=== PATIENT | female | born 1975 | race African-American/Black ===

== ENCOUNTER 2022-04-25 01:53 | Inpatient (IN) | payer BC, OTHER ==
[2022-04-25 03:43] LABS: ALT (SGPT) 99 U/L (8-55); AST (SGOT) 60 U/L (5-34); Albumin 4.3 g/dL (3.5-5.0); Alkaline Phosphatase 135 U/L (40-110); Anion Gap 25 mmol/L (10-20); BUN (Urea Nitrogen) 71 mg/dL (7.0-18.7); Bilirubin, Total 1.4 mg/dL (0.2-1.2); Calc. Creatinine Clearance 0 mL/min (70-130); Calcium 10.7 mg/dL (7.8-10.44); Chloride 103 mmol/L (98-107); Estimated GFR 25; Globulin 4.9 g/dL (2.4-3.5); Glucose 335 mg/dL (70-105); Protein, Total 9.2 g/dL (6.0-8.3); Sodium 133 mmol/L (136-145)
[2022-04-25 03:58] LABS: Carbon Dioxide 9 mmol/L (22-29)
[2022-04-25 04:16] LABS: CKMB 5.8 ng/mL (0-6.6)
[2022-04-25 04:21] LABS: Band 5 % (5-11); Hemoglobin 12.1 g/dL (12.0-16.0); Lymphocytes 22 % (21-51); MDiff Complete? YES; Mean Corpuscular HGB CONC 33.9 g/dL (32.0-36.0); Mean Corpuscular Volume 88.5 fl (78.0-98.0); Mean Platelet Volume 9.3 fL (7.4-10.4); Monocytes 8 % (0-10); Neutrophil 65 % (42-75); Nucleated RBC 16 % (0); Platelet Count 233 10x3/uL (130-400); Platelet Morphology Comment Appears Adequate; RBC Morphology Normal; Red Blood Cell (RBC) Count 4.02 mill/uL (4.20-5.40); White Blood Cell (WBC) Count 11.7 10x3/uL (4.8-10.8)
[2022-04-25] MEDS ORDERED: Aspirin 81 mg Enteric Coated Tablet ONE (04:24)
[2022-04-25] MEDS ORDERED: INSULIN REGULAR IN 0.9 % NACL 100 UNIT/100 ML BAG ONE (04:24)
[2022-04-25] MEDS ORDERED: Aspirin Chewable 81 MG TAB ONE (04:25)
[2022-04-25 05:01] LABS: Calcium, Ionized (venous) 1.05 mmol/L (1.16-1.32); Chloride (VBG) 109 mmol/L (98-106); Hemoglobin (Hb) 10.6 g/dL (11.7-16.0); Potassium (VBG) 4.17 mmol/L (3.70-5.30); Sodium 138.9 mmol/L (133-146); pH (venous) 7.33 (7.32-7.43)
[2022-04-25 05:05] LABS: Actual Bicarbonate (HCO3v) 10 mEq/L (22-28)
[2022-04-25] MEDS ORDERED: Nitroglycerin 0.4 MG TAB (25 Tab Bottle) SL PRN (05:33)
[2022-04-25] MEDS ORDERED: NS 0.9% w/ 20 MEQ KCL 1,000 ML IV PRN ×2 (05:35)
[2022-04-25] MEDS ORDERED: Ondansetron ODT 4 MG TAB PO PRN (05:35)
[2022-04-25] MEDS ORDERED: Lorazepam 2 MG/ML VIAL IM PRN (05:35)
[2022-04-25] MEDS ORDERED: Sodium Chloride 0.9% 1,000 ML IV PRN ×4 (05:35)
[2022-04-25] MEDS ORDERED: Electrolyte Replacement Protocol 1 EACH IVPB PRN (05:35)
[2022-04-25] MEDS ORDERED: Dextrose 5 %-0.45 % NaCl 1,000 ML IV PRN (05:35)
[2022-04-25] MEDS ORDERED: Dextrose 50% Abboject 50 ML SYRINGE SLOW IVP PRN (05:35)
[2022-04-25] MEDS ORDERED: Ipratropium/Albuterol 3 ML NEB NEB PRN (05:37)
[2022-04-25] MEDS ORDERED: HUMULIN R 100 UNITS in Sodium Chloride 0.9% 100 ML IVPB SCH (05:45)
[2022-04-25] MEDS ORDERED: Electrolyte Replacement Protocol 1 EACH FS SCH (05:45)
[2022-04-25] MEDS ORDERED: Heparin 10,000 UNITS/ 10 ML VIAL SLOW IVP SCH (05:45)
[2022-04-25] MEDS ORDERED: Heparin 25,000 units/D5W 500 ML IVPB SCH (05:45)
[2022-04-25 05:48] LABS: PTT 23.4 sec (22.9-36.1); Prothrombin Time 13.9 sec (12.0-14.7)
[2022-04-25 06:33] LABS: SARS-CoV-2 NAA Rapid Test Not Detected (NotDetected)
[2022-04-25] MEDS ORDERED: Heparin 10,000 UNITS/ 10 ML VIAL ONE (06:46)
[2022-04-25] MEDS ORDERED: Heparin 25,000 units/D5W 500 ML ONE (06:46)
[2022-04-25 07:02] LABS: Hemoglobin 8.3 g/dL (12.0-16.0); Platelet Count 177 10x3/uL (130-400)
[2022-04-25 07:05] LABS: Anion Gap 17 mmol/L (10-20); Chloride 113 mmol/L (98-107)
[2022-04-25] MEDS ORDERED: D5 1/2 NS w/20 mEq KCL 1,000 ML ONE (07:08)
[2022-04-25] MEDS ORDERED: Dextrose 50% Abboject 50 ML SYRINGE ONE (07:09)
[2022-04-25 07:12] LABS: Critical Call Chem Troponin I RESULT DECREASING; Troponin I 1.506 ng/mL (< 0.028)
[2022-04-25 08:02] LABS: BUN (Urea Nitrogen) 61 mg/dL (7.0-18.7); Calc. Creatinine Clearance 0 mL/min (70-130); Calcium 7.8 mg/dL (7.8-10.44); Carbon Dioxide 10 mmol/L (22-29); Estimated GFR 36; Glucose 164 mg/dL (70-105); Sodium 138 mmol/L (136-145)
[2022-04-25] MEDS ORDERED: Potassium Chloride 20 MEQ TAB PO SCH (08:15)
[2022-04-25] MEDS ORDERED: Aspirin 325 mg Enteric Coated Tablet PO SCH (08:30)
[2022-04-25] MEDS ORDERED: Magnesium 2 GM/50 ML(in water) 2 GM in Premix Bag 1 BAG IVPB SCH (09:00)
[2022-04-25 09:10] LABS: SARS-CoV-2 NAA Rapid Test Not Detected (NotDetected)
[2022-04-25 10:28] LABS: Anion Gap 17 mmol/L (10-20); BUN (Urea Nitrogen) 64 mg/dL (7.0-18.7); Calc. Creatinine Clearance 0 mL/min (70-130); Calcium 8.2 mg/dL (7.8-10.44); Carbon Dioxide 10 mmol/L (22-29); Chloride 110 mmol/L (98-107); Estimated GFR 32; Glucose 212 mg/dL (70-105); Potassium 2.9 mmol/L (3.5-5.1); Sodium 134 mmol/L (136-145)
[2022-04-25 10:40] LABS: Critical Call Chem Troponin I RESULT DECREASING; Troponin I 1.475 ng/mL (< 0.028)
[2022-04-25 11:04] LABS: Syphilis Antibody Nonreactive (Nonreactive); Syphilis Antibody Index 0.02 S/CO (<1.00 Non-Reactive)
[2022-04-25] MEDS ORDERED: Folic Acid 1 MG TAB ONE (12:17)
[2022-04-25] MEDS ORDERED: Aspirin 325 MG TAB ONE (12:17)
[2022-04-25 12:23] LABS: Bilirubin 1+ (Negative); Blood, Urine Negative (Negative); Clarity Turbid (Clear); Glucose, Urine (Dipstick) Normal (Negative); Ketone, Urine Trace mg/dL (Negative); Leukocyte Negative Leu/uL (Negative); Nitrite Negative (Negative); Protein, Urine (Dipstick) 20 mg/dL (Neg-Trace); Specific Gravity, Urine 1.021 (1.002-1.036)
[2022-04-25 12:34] LABS: Amphetamine Not Detected (NotDetected); Barbiturates Screen Not Detected (NotDetected); Benzodiazepine Screen Not Detected (NotDetected); Cocaine Metabolite Screen Not Detected (NotDetected); Methadone Not Detected (NotDetected); Methamphetamine Not Detected (NotDetected); Opiate Screen Not Detected (NotDetected); Oxycodone Screen Not Detected (NotDetected); Phencyclidine (PCP) Not Detected (NotDetected); THC/Cannabinoid Screen Not Detected (NotDetected); Tricyclic Screen Not Detected (NotDetected)
[2022-04-25] MEDS: Multivit, Therapeutic 1 TAB PO SCH (12:37)
[2022-04-25] MEDS: Aspirin 325 mg Enteric Coated Tablet PO SCH (12:37)
[2022-04-25] MEDS: Folic Acid 1 MG TAB PO SCH (12:37)
[2022-04-25] MEDS: Thiamine HCl 200 MG/2 ML VIAL SLOW IVP SCH (12:37)
[2022-04-25] MEDS ORDERED: Magnesium 2 GM/50 ML BAG (IN WATER) ONE (13:02)
[2022-04-25 14:39] LABS: Anion Gap 18 mmol/L (10-20); BUN (Urea Nitrogen) 63 mg/dL (7.0-18.7); Calc. Creatinine Clearance 0 mL/min (70-130); Calcium 7.9 mg/dL (7.8-10.44); Carbon Dioxide 12 mmol/L (22-29); Chloride 110 mmol/L (98-107); Estimated GFR 33; Glucose 212 mg/dL (70-105); Potassium 3.2 mmol/L (3.5-5.1); Sodium 137 mmol/L (136-145)
[2022-04-25] MEDS: Digoxin 0.5 MG/2 ML AMP SLOW IVP SCH ×3 (17:48→21:21)
[2022-04-25] MEDS: Lorazepam 1 MG TAB PO PRN ×2 (19:34→21:24)
[2022-04-25] MEDS: D5 1/2 NS w/20 mEq KCL 1,000 ML IV PRN ×2 (19:34→23:51)
[2022-04-26] MEDS: D5 1/2 NS w/20 mEq KCL 1,000 ML IV PRN (04:10)
[2022-04-26] MEDS ORDERED: Lorazepam 1 MG TAB PO PRN (05:35)
[2022-04-26 07:24] LABS: Hemoglobin A1c 5.6 % (4.0-6.0)
[2022-04-26 07:42] LABS: ALT (SGPT) 57 U/L (8-55); AST (SGOT) 47 U/L (5-34); Albumin 2.6 g/dL (3.5-5.0); Alkaline Phosphatase 98 U/L (40-110); Anion Gap 12 mmol/L (10-20); BUN (Urea Nitrogen) 43 mg/dL (7.0-18.7); Bilirubin, Total 1.1 mg/dL (0.2-1.2); Calc. Creatinine Clearance 37 mL/min (70-130); Calcium 7.3 mg/dL (7.8-10.44); Carbon Dioxide 8 mmol/L (22-29); Cardiac Risk 3.7 (Less than 4.5); Chloride 114 mmol/L (98-107); Cholesterol 93 mg/dl (< 200 Desired); Estimated GFR 54; Globulin 2.6 g/dL (2.4-3.5); Glucose 124 mg/dL (70-105); HDL Cholesterol 25 mg/dL (>60 Neg Risk); LDL Cholesterol, Calculated 56 mg/dL; Lipase 4 U/L (8-78); Potassium 4.7 mmol/L (3.5-5.1); Protein, Total 5.2 g/dL (6.0-8.3); Sodium 129 mmol/L (136-145); Triglycerides 58 mg/dL (Less than 150)
[2022-04-26 07:43] LABS: Magnesium 2.5 mg/dL (1.6-2.6)
[2022-04-26] MEDS ORDERED: Sodium Bicarbonate 150 MEQ in Dextrose 5% in Water 1,000 ML IV SCH (08:45)
[2022-04-26] MEDS: Folic Acid 1 MG TAB PO SCH ×2 (09:22→09:30)
[2022-04-26] MEDS: Aspirin 325 mg Enteric Coated Tablet PO SCH ×2 (09:22→09:30)
[2022-04-26] MEDS: Digoxin 0.125 MG TAB PO SCH ×2 (09:22→09:30)
[2022-04-26] MEDS: Multivit, Therapeutic 1 TAB PO SCH ×2 (09:22→09:30)
[2022-04-26] MEDS: Insulin Glargine 30 UNITS/0.3 ML VIAL SC SCH (09:22)
[2022-04-26] MEDS: DOBUTamine 500 mg/250 ml 250 ML IVPB SCH (09:23)
[2022-04-26] MEDS: Thiamine HCl 200 MG/2 ML VIAL SLOW IVP SCH (09:38)
[2022-04-26 12:53] LABS: Lactic Acid 2.7 mmol/L (0.5-2.2)
[2022-04-26 19:03] LABS: Anion Gap 12 mmol/L (10-20); BUN (Urea Nitrogen) 39 mg/dL (7.0-18.7); Calc. Creatinine Clearance 38 mL/min (70-130); Calcium 7.4 mg/dL (7.8-10.44); Carbon Dioxide 16 mmol/L (22-29); Chloride 108 mmol/L (98-107); Estimated GFR 56; Glucose 213 mg/dL (70-105); Potassium 4.5 mmol/L (3.5-5.1); Sodium 131 mmol/L (136-145)
[2022-04-27 04:46] LABS: Band 14 % (5-11); Eosinophils 1 % (0-10); Hemoglobin 7.8 g/dL (12.0-16.0); Hypochromia SLIGHT = 6-15 cells (100X) (0-5/hpf); Lymphocytes 13 % (21-51); MDiff Complete? YES; Mean Corpuscular HGB CONC 32.2 g/dL (32.0-36.0); Mean Corpuscular Hemoglobin 29.4 pg (27.0-31.0); Mean Corpuscular Volume 91.3 fl (78.0-98.0); Mean Platelet Volume 9.6 fL (7.4-10.4); Monocytes 5 % (0-10); Neutrophil 67 % (42-75); Nucleated RBC 27 % (0); Platelet Count 145 10x3/uL (130-400); Platelet Morphology Comment Appears Adequate; RBC Distribution Width 14.7 % (11.5-14.5); Red Blood Cell (RBC) Count 2.66 mill/uL (4.20-5.40); White Blood Cell (WBC) Count 10.9 10x3/uL (4.8-10.8)
[2022-04-27 04:53] LABS: ALT (SGPT) 66 U/L (8-55); AST (SGOT) 54 U/L (5-34); Albumin 2.6 g/dL (3.5-5.0); Alkaline Phosphatase 129 U/L (40-110); Anion Gap 14 mmol/L (10-20); BUN (Urea Nitrogen) 36 mg/dL (7.0-18.7); Bilirubin, Total 1.6 mg/dL (0.2-1.2); Calc. Creatinine Clearance 40 mL/min (70-130); Calcium 7.9 mg/dL (7.8-10.44); Carbon Dioxide 15 mmol/L (22-29); Chloride 107 mmol/L (98-107); Estimated GFR 60; Globulin 2.7 g/dL (2.4-3.5); Glucose 158 mg/dL (70-105); Potassium 4.3 mmol/L (3.5-5.1); Protein, Total 5.3 g/dL (6.0-8.3); Sodium 132 mmol/L (136-145)
[2022-04-27 04:54] LABS: Iron 17 ug/dL (50-170); Iron Binding Capacity, Total 188 mcg/dL (265-497)
[2022-04-27 05:03] LABS: Phosphorus 1.9 mg/dL (2.3-4.7)
[2022-04-27 05:12] LABS: Ferritin 219.27 ng/mL (10-291)
[2022-04-27 05:17] LABS: Vitamin D, 25 Hydroxy Less than 3.4 ng/ml (> 30.0)
[2022-04-27] MEDS ORDERED: Lorazepam 1 MG TAB PO PRN (05:35)
[2022-04-27] MEDS: Digoxin 0.125 MG TAB PO SCH (08:55)
[2022-04-27] MEDS: PHOS-NAK 1 PKT PACK PO SCH ×2 (08:56→13:25)
[2022-04-27] MEDS: Aspirin 81 mg Enteric Coated Tablet PO SCH (08:57)
[2022-04-27] MEDS: Folic Acid 1 MG TAB PO SCH (08:57)
[2022-04-27] MEDS: Multivit, Therapeutic 1 TAB PO SCH (08:57)
[2022-04-27] MEDS: Insulin Glargine 30 UNITS/0.3 ML VIAL SC SCH (08:58)
[2022-04-27] MEDS ORDERED: Lisinopril 2.5 MG TAB PO SCH (09:00)
[2022-04-27] MEDS: Pantoprazole 40 MG VIAL IVP SCH (09:07)
[2022-04-27] MEDS: Thiamine HCl 200 MG/2 ML VIAL SLOW IVP SCH (09:07)
[2022-04-27] MEDS ORDERED: Empagliflozin 10 MG TAB PO SCH (12:00)
[2022-04-27] MEDS: Ergocalciferol 1.25 MG(50,000 UNITS) CAP PO SCH (13:24)
[2022-04-27] MEDS: Iron, Sodium Ferric Gluconate 250 MG in Sodium Chloride 0.9% 250 ML 250 ML IVPB SCH (15:01)
[2022-04-27] MEDS ORDERED: Sodium Bicarbonate 150 MEQ in Dextrose 5% in Water 1,000 ML IV SCH (15:30)
[2022-04-28 04:35] LABS: Phosphorus 2.2 mg/dL (2.3-4.7)
[2022-04-28 04:38] LABS: ALT (SGPT) 69 U/L (8-55); AST (SGOT) 60 U/L (5-34); Albumin 2.5 g/dL (3.5-5.0); Alkaline Phosphatase 146 U/L (40-110); Anion Gap 11 mmol/L (10-20); BUN (Urea Nitrogen) 27 mg/dL (7.0-18.7); Bilirubin, Total 1.6 mg/dL (0.2-1.2); Calc. Creatinine Clearance 40 mL/min (70-130); Calcium 7.6 mg/dL (7.8-10.44); Carbon Dioxide 25 mmol/L (22-29); Chloride 104 mmol/L (98-107); Estimated GFR 62; Globulin 2.5 g/dL (2.4-3.5); Glucose 84 mg/dL (70-105); Potassium 3.2 mmol/L (3.5-5.1); Sodium 137 mmol/L (136-145)
[2022-04-28 05:19] LABS: Anisocytosis MODERATE=16-30 cells (100X) (0-5/hpf); Band 4 % (5-11); Burr Cells SLIGHT = 2-5 cells (100X) (0-1/hpf); Hemoglobin 6.8 g/dL (12.0-16.0); Lymphocytes 20 % (21-51); MDiff Complete? YES; Mean Corpuscular HGB CONC 32.1 g/dL (32.0-36.0); Mean Corpuscular Hemoglobin 29.4 pg (27.0-31.0); Mean Corpuscular Volume 91.6 fl (78.0-98.0); Mean Platelet Volume 9.6 fL (7.4-10.4); Monocytes 7 % (0-10); Neutrophil 69 % (42-75); Nucleated RBC 31 % (0); Platelet Count 134 10x3/uL (130-400); Platelet Morphology Comment Appears Adequate; Polychromasia SLIGHT = 2-3 cells (100X) (0-2/hpf); Red Blood Cell (RBC) Count 2.29 mill/uL (4.20-5.40); Tear Drops SLIGHT = 2-5 cells (100X) (0-1/hpf); White Blood Cell (WBC) Count 7.8 10x3/uL (4.8-10.8)
[2022-04-28] MEDS ORDERED: Lorazepam 0.5 MG TAB PO PRN (05:35)
[2022-04-28] MEDS: Potassium Chloride 20 MEQ in Premix Bag 1 BAG IVPB SCH ×2 (05:59→11:34)
[2022-04-28] MEDS ORDERED: Lisinopril 2.5 MG TAB PO SCH (08:07)
[2022-04-28] MEDS: Multivit, Therapeutic 1 TAB PO SCH (08:22)
[2022-04-28] MEDS: Folic Acid 1 MG TAB PO SCH (08:22)
[2022-04-28] MEDS: Aspirin 81 mg Enteric Coated Tablet PO SCH (08:22)
[2022-04-28] MEDS: Digoxin 0.125 MG TAB PO SCH (08:22)
[2022-04-28] MEDS: Insulin Glargine 30 UNITS/0.3 ML VIAL SC SCH (08:23)
[2022-04-28] MEDS: Pantoprazole 40 MG VIAL IVP SCH (08:23)
[2022-04-28] MEDS ORDERED: Lisinopril 5 MG TAB PO SCH (09:00)
[2022-04-28] MEDS ORDERED: Potassium Phosphate 30 MMOL in Sodium Chloride 0.9% 250 ML 250 ML IVPB SCH (10:00)
[2022-04-28] MEDS: Dextrose 5%-Lactated Ringers 1,000 ML IV SCH ×2 (11:34→23:48)
[2022-04-28] MEDS: Thiamine 100 MG TAB PO SCH (11:34)
[2022-04-28 16:24] LABS: Hemoglobin 8.5 g/dL (12.0-16.0)
[2022-04-28] MEDS: Iron, Sodium Ferric Gluconate 250 MG in Sodium Chloride 0.9% 250 ML 250 ML IVPB SCH (18:08)
[2022-04-28] MEDS: PHOS-NAK 1 PKT PACK PO SCH (19:55)
[2022-04-28] MEDS: Temazepam 15 MG CAP PO PRN (23:56)
[2022-04-29 04:13] LABS: Hemoglobin 9.9 g/dL (12.0-16.0); Mean Corpuscular HGB CONC 34.6 g/dL (32.0-36.0); Mean Corpuscular Hemoglobin 32.3 pg (27.0-31.0); Mean Corpuscular Volume 93.4 fl (78.0-98.0); Mean Platelet Volume 9.8 fL (7.4-10.4); Platelet Count 123 10x3/uL (130-400); RBC Distribution Width 15.6 % (11.5-14.5); Red Blood Cell (RBC) Count 3.07 mill/uL (4.20-5.40)
[2022-04-29 04:21] LABS: ALT (SGPT) 59 U/L (8-55); AST (SGOT) 39 U/L (5-34); Albumin 2.6 g/dL (3.5-5.0); Alkaline Phosphatase 149 U/L (40-110); Anion Gap 14 mmol/L (10-20); BUN (Urea Nitrogen) 19 mg/dL (7.0-18.7); Bilirubin, Total 1.9 mg/dL (0.2-1.2); Calc. Creatinine Clearance 43 mL/min (70-130); Calcium 7.7 mg/dL (7.8-10.44); Carbon Dioxide 19 mmol/L (22-29); Chloride 107 mmol/L (98-107); Estimated GFR 66; Globulin 2.7 g/dL (2.4-3.5); Glucose 93 mg/dL (70-105); Potassium 3.3 mmol/L (3.5-5.1); Protein, Total 5.3 g/dL (6.0-8.3); Sodium 137 mmol/L (136-145)
[2022-04-29 04:40] LABS: Band 1 % (5-11); Lymphocytes 16 % (21-51); MDiff Complete? YES; Monocytes 2 % (0-10); Neutrophil 81 % (42-75); Nucleated RBC 4 % (0); Polychromasia MODERATE = 3-4 cells (100X) (0-2/hpf); Target Cells SLIGHT = 2-5 cells (100X) (0-1/hpf); White Blood Cell (WBC) Count 10.1 10x3/uL (4.8-10.8)
[2022-04-29] MEDS ORDERED: Nicotine 14 MG PATCH TOP SCH (04:45)
[2022-04-29] MEDS: DOBUTamine 500 mg/250 ml 250 ML IVPB SCH (05:06)
[2022-04-29] MEDS ORDERED: DOBUTamine 500 mg/250 ml 250 ML IVPB SCH (07:21)
[2022-04-29] MEDS: Pantoprazole 40 MG VIAL IVP SCH (09:28)
[2022-04-29] MEDS: Multivit, Therapeutic 1 TAB PO SCH (09:28)
[2022-04-29] MEDS: Digoxin 0.125 MG TAB PO SCH (09:28)
[2022-04-29] MEDS: Lisinopril 10 MG TAB PO SCH (09:28)
[2022-04-29] MEDS: Aspirin 81 mg Enteric Coated Tablet PO SCH (09:28)
[2022-04-29] MEDS: Thiamine 100 MG TAB PO SCH (09:28)
[2022-04-29] MEDS: Empagliflozin 10 MG TAB PO SCH (09:28)
[2022-04-29] MEDS: PHOS-NAK 1 PKT PACK PO SCH ×3 (09:28→20:54)
[2022-04-29] MEDS: Folic Acid 1 MG TAB PO SCH (09:28)
[2022-04-29] MEDS ORDERED: Potassium Phosphate 30 MMOL in Sodium Chloride 0.9% 250 ML 250 ML IVPB SCH (10:00)
[2022-04-29] MEDS: Acetaminophen 500 MG TAB PO PRN (17:10)
[2022-04-29] MEDS: Dextrose 5%-Lactated Ringers 1,000 ML IV SCH (17:11)
[2022-04-29] MEDS: Iron, Sodium Ferric Gluconate 250 MG in Sodium Chloride 0.9% 250 ML 250 ML IVPB SCH (19:09)
[2022-04-30] MEDS: Dextrose 5%-Lactated Ringers 1,000 ML IV SCH (01:50)
[2022-04-30 04:33] LABS: Hemoglobin 9.1 g/dL (12.0-16.0); Platelet Count 120 10x3/uL (130-400)
[2022-04-30 04:43] LABS: Albumin 2.4 g/dL (3.5-5.0); Anion Gap 13 mmol/L (10-20); BUN (Urea Nitrogen) 18 mg/dL (7.0-18.7); BUN/Creatinine Ratio 16.98; Calc. Creatinine Clearance 43 mL/min (70-130); Calcium 7.3 mg/dL (7.8-10.44); Carbon Dioxide 19 mmol/L (22-29); Chloride 106 mmol/L (98-107); Estimated GFR 65; Glucose 119 mg/dL (70-105); Phosphorus 6.4 mg/dL (2.3-4.7); Potassium 3.4 mmol/L (3.5-5.1); Sodium 135 mmol/L (136-145)
[2022-04-30] MEDS: Pantoprazole 40 MG VIAL IVP SCH (08:55)
[2022-04-30] MEDS: Lisinopril 10 MG TAB PO SCH (09:07)
[2022-04-30] MEDS: Aspirin 81 mg Enteric Coated Tablet PO SCH (09:08)
[2022-04-30] MEDS: Empagliflozin 10 MG TAB PO SCH (09:08)
[2022-04-30] MEDS: Folic Acid 1 MG TAB PO SCH (09:08)
[2022-04-30] MEDS: Multivit, Therapeutic 1 TAB PO SCH (09:08)
[2022-04-30] MEDS: Thiamine 100 MG TAB PO SCH (09:08)
[2022-04-30] MEDS: Digoxin 0.125 MG TAB PO SCH (09:08)
[2022-04-30] MEDS: PHOS-NAK 1 PKT PACK PO SCH (09:08)
[2022-04-30] MEDS ORDERED: Sodium Bicarbonate Tab 325 MG TAB PO SCH ×2 (09:30→21:00)
[2022-04-30] MEDS ORDERED: Potassium Chloride 20 MEQ TAB PO SCH (12:00)
[2022-04-30] MEDS ORDERED: Furosemide 20 MG TAB PO SCH (14:00)
[2022-04-30] MEDS: Iron, Sodium Ferric Gluconate 250 MG in Sodium Chloride 0.9% 250 ML 250 ML IVPB SCH (15:21)
[2022-04-30] MEDS: Loratadine 10 MG TAB PO SCH (20:15)
[2022-04-30] MEDS: Acetaminophen 500 MG TAB PO PRN (20:16)
[2022-05-01] MEDS: Temazepam 15 MG CAP PO PRN (01:00)
[2022-05-01 06:07] LABS: Anion Gap 12 mmol/L (10-20); BUN (Urea Nitrogen) 22 mg/dL (7.0-18.7); Calc. Creatinine Clearance 33 mL/min (70-130); Calcium 7.6 mg/dL (7.8-10.44); Carbon Dioxide 21 mmol/L (22-29); Chloride 108 mmol/L (98-107); Estimated GFR 48; Glucose 122 mg/dL (70-105); Magnesium 1.3 mg/dL (1.6-2.6); Potassium 3.4 mmol/L (3.5-5.1); Sodium 138 mmol/L (136-145)
[2022-05-01 06:34] LABS: Phosphorus 4.5 mg/dL (2.3-4.7)
[2022-05-01] MEDS ORDERED: Potassium Bicarbonate/Cit Ac 20 MEQ TAB PO SCH (08:00)
[2022-05-01] MEDS ORDERED: Magnesium Sulfate In Water 4 GM in Premix Bag 1 BAG IVPB SCH (08:00)
[2022-05-01] MEDS ORDERED: Furosemide 20 MG/2 ML VIAL SLOW IVP SCH ×2 (08:30→14:00)
[2022-05-01] MEDS: Sodium Bicarbonate Tab 325 MG TAB PO SCH ×3 (09:40→20:24)
[2022-05-01] MEDS: Multivit, Therapeutic 1 TAB PO SCH (09:41)
[2022-05-01] MEDS: Folic Acid 1 MG TAB PO SCH (09:41)
[2022-05-01] MEDS: Lisinopril 10 MG TAB PO SCH (09:41)
[2022-05-01] MEDS: Aspirin 81 mg Enteric Coated Tablet PO SCH (09:42)
[2022-05-01] MEDS: Digoxin 0.125 MG TAB PO SCH (09:42)
[2022-05-01] MEDS: Empagliflozin 10 MG TAB PO SCH (09:43)
[2022-05-01] MEDS: Thiamine 100 MG TAB PO SCH (09:44)
[2022-05-01] MEDS: Pantoprazole 40 MG VIAL IVP SCH (09:44)
[2022-05-01] MEDS ORDERED: Magnesium 2 GM/50 ML(in water) 2 GM in Premix Bag 1 BAG IVPB SCH (12:00)
[2022-05-01 16:26] LABS: Potassium 3.8 mmol/L (3.5-5.1)
[2022-05-01] MEDS: Loratadine 10 MG TAB PO SCH (20:24)
[2022-05-02 04:47] LABS: #Eosinphils 0.1 thou/uL (0.0-0.7); #Lymphocytes 2.3 thou/uL (1.20-3.40); #Neutrophils 9.3 thou/uL (1.40-6.50); %Basophils 0.3 % (0.0-1.0); %Eosinophils 0.7 % (0.0-10.0); %Lymphocytes 17.8 % (21.0-51.0); %Monocytes 7.9 % (0.0-10.0); %Neutrophils 73.2 % (42.0-75.0); Hemoglobin 9.2 g/dL (12.0-16.0); Mean Corpuscular HGB CONC 32.1 g/dL (32.0-36.0); Mean Corpuscular Hemoglobin 30.5 pg (27.0-31.0); Mean Platelet Volume 9.4 fL (7.4-10.4); Platelet Count 186 10x3/uL (130-400); RBC Distribution Width 15.7 % (11.5-14.5); Red Blood Cell (RBC) Count 3.03 mill/uL (4.20-5.40); White Blood Cell (WBC) Count 12.6 10x3/uL (4.8-10.8)
[2022-05-02 05:05] LABS: Anion Gap 14 mmol/L (10-20); BUN (Urea Nitrogen) 25 mg/dL (7.0-18.7); Calc. Creatinine Clearance 31 mL/min (70-130); Calcium 8.4 mg/dL (7.8-10.44); Carbon Dioxide 25 mmol/L (22-29); Chloride 102 mmol/L (98-107); Estimated GFR 44; Glucose 134 mg/dL (70-105); Potassium 3.3 mmol/L (3.5-5.1); Sodium 138 mmol/L (136-145)
[2022-05-02] MEDS ORDERED: Milrinone Lactate/D5W 20 MG in Premix Bag 1 BAG IV SCH (07:45)
[2022-05-02] MEDS ORDERED: Potassium Chloride 20 MEQ TAB PO SCH (08:00)
[2022-05-02] MEDS: Folic Acid 1 MG TAB PO SCH (09:13)
[2022-05-02] MEDS: Multivit, Therapeutic 1 TAB PO SCH (09:13)
[2022-05-02] MEDS: Aspirin 81 mg Enteric Coated Tablet PO SCH (09:13)
[2022-05-02] MEDS: Empagliflozin 10 MG TAB PO SCH (09:13)
[2022-05-02] MEDS: Digoxin 0.125 MG TAB PO SCH (09:13)
[2022-05-02 09:14] LABS: Magnesium 2.1 mg/dL (1.6-2.6)
[2022-05-02] MEDS: Sodium Bicarbonate Tab 325 MG TAB PO SCH ×3 (09:14→22:12)
[2022-05-02] MEDS: Thiamine 100 MG TAB PO SCH (09:17)
[2022-05-02] MEDS: Pantoprazole 40 MG VIAL IVP SCH (12:06)
[2022-05-02 13:29] LABS: Potassium 3.7 mmol/L (3.5-5.1)
[2022-05-02] MEDS: Acetaminophen 500 MG TAB PO PRN (17:13)
[2022-05-02] MEDS: Heparin 5,000 UNITS/ML VIAL SC SCH (22:11)
[2022-05-02] MEDS: Loratadine 10 MG TAB PO SCH (22:11)
[2022-05-02] MEDS: Nicotine 14 MG PATCH TOP SCH (22:11)
[2022-05-03] MEDS: Milrinone Lactate/D5W 20 MG in Premix Bag 1 BAG IV SCH (07:58)
[2022-05-03 09:01] LABS: Anion Gap 13 mmol/L (10-20); BUN (Urea Nitrogen) 21 mg/dL (7.0-18.7); Calc. Creatinine Clearance 41 mL/min (70-130); Calcium 8.6 mg/dL (7.8-10.44); Carbon Dioxide 21 mmol/L (22-29); Chloride 107 mmol/L (98-107); Estimated GFR 66; Glucose 110 mg/dL (70-105); Potassium 3.5 mmol/L (3.5-5.1); Sodium 137 mmol/L (136-145)
[2022-05-03] MEDS: Digoxin 0.125 MG TAB PO SCH (09:40)
[2022-05-03] MEDS: Aspirin 81 mg Enteric Coated Tablet PO SCH (09:40)
[2022-05-03] MEDS: Sodium Bicarbonate Tab 325 MG TAB PO SCH ×3 (09:40→21:55)
[2022-05-03] MEDS: Heparin 5,000 UNITS/ML VIAL SC SCH ×3 (09:41→21:57)
[2022-05-03] MEDS: Multivit, Therapeutic 1 TAB PO SCH (09:41)
[2022-05-03] MEDS: Folic Acid 1 MG TAB PO SCH (09:41)
[2022-05-03] MEDS: Empagliflozin 10 MG TAB PO SCH (09:42)
[2022-05-03] MEDS ORDERED: Spironolactone 25 MG TAB PO SCH (10:00)
[2022-05-03] MEDS ORDERED: Epoetin (ESRD) 10,000 UNITS/ML VIAL SC SCH (10:00)
[2022-05-03] MEDS ORDERED: Potassium Chloride 20 MEQ TAB PO SCH (10:30)
[2022-05-03] MEDS: Thiamine 100 MG TAB PO SCH (10:56)
[2022-05-03] MEDS ORDERED: EPOETIN ALFA-EPBX (ESRD) 10,000 UNIT/ML VIAL SC SCH (12:00)
[2022-05-03] MEDS: Nicotine 14 MG PATCH TOP SCH (21:54)
[2022-05-03] MEDS: Loratadine 10 MG TAB PO SCH (21:55)
[2022-05-03] MEDS: Melatonin 3 MG TAB PO SCH (21:55)
[2022-05-04 05:43] LABS: Anion Gap 12 mmol/L (10-20); BUN (Urea Nitrogen) 18 mg/dL (7.0-18.7); Calc. Creatinine Clearance 33 mL/min (70-130); Calcium 8.1 mg/dL (7.8-10.44); Carbon Dioxide 21 mmol/L (22-29); Chloride 108 mmol/L (98-107); Estimated GFR 55; Glucose 116 mg/dL (70-105); Magnesium 1.5 mg/dL (1.6-2.6); Phosphorus 2.7 mg/dL (2.3-4.7); Sodium 137 mmol/L (136-145)
[2022-05-04] MEDS: Milrinone Lactate/D5W 20 MG in Premix Bag 1 BAG IV SCH (07:14)
[2022-05-04] MEDS ORDERED: Magnesium 2 GM/50 ML(in water) 2 GM in Premix Bag 1 BAG IVPB SCH (08:00)
[2022-05-04] MEDS: Multivit, Therapeutic 1 TAB PO SCH (08:50)
[2022-05-04] MEDS: Digoxin 0.125 MG TAB PO SCH (08:50)
[2022-05-04] MEDS: Folic Acid 1 MG TAB PO SCH (08:50)
[2022-05-04] MEDS: Aspirin 81 mg Enteric Coated Tablet PO SCH (08:50)
[2022-05-04] MEDS: Spironolactone 25 MG TAB PO SCH (08:51)
[2022-05-04] MEDS: Heparin 5,000 UNITS/ML VIAL SC SCH ×3 (08:51→22:48)
[2022-05-04] MEDS: Empagliflozin 10 MG TAB PO SCH (08:51)
[2022-05-04] MEDS: Ergocalciferol 1.25 MG(50,000 UNITS) CAP PO SCH (09:43)
[2022-05-04] MEDS: Sodium Bicarbonate Tab 325 MG TAB PO SCH ×4 (09:44→22:47)
[2022-05-04] MEDS: Thiamine 100 MG TAB PO SCH (09:44)
[2022-05-04] MEDS: Loratadine 10 MG TAB PO SCH (22:47)
[2022-05-04] MEDS: Melatonin 3 MG TAB PO SCH (22:48)
[2022-05-04] MEDS: Nicotine 14 MG PATCH TOP SCH (22:56)
[2022-05-05 05:21] LABS: Anion Gap 11 mmol/L (10-20); BUN (Urea Nitrogen) 16 mg/dL (7.0-18.7); Calc. Creatinine Clearance 29 mL/min (70-130); Calcium 8.2 mg/dL (7.8-10.44); Carbon Dioxide 23 mmol/L (22-29); Chloride 106 mmol/L (98-107); Estimated GFR 46; Glucose 114 mg/dL (70-105); Potassium 3.6 mmol/L (3.5-5.1); Sodium 136 mmol/L (136-145)
[2022-05-05] MEDS: Folic Acid 1 MG TAB PO SCH (08:50)
[2022-05-05] MEDS: hydrALAZINE 25 MG TAB PO SCH ×3 (08:50→21:23)
[2022-05-05] MEDS: Digoxin 0.125 MG TAB PO SCH (08:50)
[2022-05-05] MEDS: Spironolactone 25 MG TAB PO SCH (08:50)
[2022-05-05] MEDS: Aspirin 81 mg Enteric Coated Tablet PO SCH (08:50)
[2022-05-05] MEDS: Empagliflozin 10 MG TAB PO SCH (08:50)
[2022-05-05] MEDS: Multivit, Therapeutic 1 TAB PO SCH (08:51)
[2022-05-05] MEDS: Sodium Bicarbonate Tab 325 MG TAB PO SCH ×3 (08:51→21:22)
[2022-05-05] MEDS: Heparin 5,000 UNITS/ML VIAL SC SCH ×3 (09:01→21:22)
[2022-05-05] MEDS: Thiamine 100 MG TAB PO SCH (09:01)
[2022-05-05] MEDS ORDERED: diphenhydrAMINE 30 GM TUBE TOP PRN (12:45)
[2022-05-05] MEDS: Milrinone Lactate/D5W 20 MG in Premix Bag 1 BAG IV SCH (14:47)
[2022-05-05] MEDS: Nicotine 14 MG PATCH TOP SCH (21:22)
[2022-05-05] MEDS: Loratadine 10 MG TAB PO SCH (21:22)
[2022-05-05] MEDS: Melatonin 3 MG TAB PO SCH (21:22)
[2022-05-06 04:59] LABS: #Eosinphils 0.1 thou/uL (0.0-0.7); #Lymphocytes 3.1 thou/uL (1.20-3.40); #Monocytes 0.8 thou/uL (0.11-0.59); #Neutrophils 6.9 thou/uL (1.40-6.50); %Basophils 0.3 % (0.0-1.0); %Eosinophils 1.2 % (0.0-10.0); %Lymphocytes 28.1 % (21.0-51.0); %Monocytes 7.6 % (0.0-10.0); %Neutrophils 62.7 % (42.0-75.0); Hemoglobin 7.9 g/dL (12.0-16.0); Mean Corpuscular HGB CONC 31.1 g/dL (32.0-36.0); Mean Corpuscular Volume 96.4 fl (78.0-98.0); Mean Platelet Volume 8.3 fL (7.4-10.4); Platelet Count 347 10x3/uL (130-400); RBC Distribution Width 15.8 % (11.5-14.5); Red Blood Cell (RBC) Count 2.63 mill/uL (4.20-5.40)
[2022-05-06 05:14] LABS: Phosphorus 2.2 mg/dL (2.3-4.7)
[2022-05-06 05:21] LABS: Anion Gap 12 mmol/L (10-20); BUN (Urea Nitrogen) 16 mg/dL (7.0-18.7); Calc. Creatinine Clearance 36 mL/min (70-130); Calcium 8.4 mg/dL (7.8-10.44); Carbon Dioxide 21 mmol/L (22-29); Chloride 108 mmol/L (98-107); Estimated GFR 61; Glucose 177 mg/dL (70-105); Magnesium 1.7 mg/dL (1.6-2.6); Potassium 3.2 mmol/L (3.5-5.1); Sodium 138 mmol/L (136-145)
[2022-05-06] MEDS ORDERED: Milrinone Lactate/D5W 20 MG in Premix Bag 1 BAG IV SCH (06:49)
[2022-05-06] MEDS ORDERED: Potassium Chloride 20 MEQ TAB PO SCH (08:00)
[2022-05-06] MEDS ORDERED: Potassium Phosphate 30 MMOL in Sodium Chloride 0.9% 250 ML 250 ML IVPB SCH (08:00)
[2022-05-06] MEDS ORDERED: Magnesium 2 GM/50 ML(in water) 2 GM in Premix Bag 1 BAG IVPB SCH (08:00)
[2022-05-06 08:37] LABS: Hemoglobin 7.9 g/dL (12.0-16.0); Platelet Count 332 10x3/uL (130-400)
[2022-05-06] MEDS: Sodium Bicarbonate Tab 325 MG TAB PO SCH ×3 (09:39→21:18)
[2022-05-06] MEDS: hydrALAZINE 25 MG TAB PO SCH ×3 (09:40→21:19)
[2022-05-06] MEDS: Folic Acid 1 MG TAB PO SCH (09:40)
[2022-05-06] MEDS: Digoxin 0.125 MG TAB PO SCH (09:41)
[2022-05-06] MEDS: Spironolactone 25 MG TAB PO SCH (09:41)
[2022-05-06] MEDS: Multivit, Therapeutic 1 TAB PO SCH (09:41)
[2022-05-06] MEDS: Empagliflozin 10 MG TAB PO SCH (09:41)
[2022-05-06] MEDS: Heparin 5,000 UNITS/ML VIAL SC SCH ×3 (09:41→21:17)
[2022-05-06] MEDS: Aspirin 81 mg Enteric Coated Tablet PO SCH (09:46)
[2022-05-06] MEDS: Thiamine 100 MG TAB PO SCH (09:46)
[2022-05-06] MEDS: Nicotine 14 MG PATCH TOP SCH (21:17)
[2022-05-06] MEDS: Loratadine 10 MG TAB PO SCH (21:18)
[2022-05-06] MEDS: Melatonin 3 MG TAB PO SCH (21:19)
[2022-05-07 05:13] LABS: Anion Gap 14 mmol/L (10-20); BUN (Urea Nitrogen) 12 mg/dL (7.0-18.7); Calc. Creatinine Clearance 40 mL/min (70-130); Calcium 8.8 mg/dL (7.8-10.44); Carbon Dioxide 20 mmol/L (22-29); Chloride 108 mmol/L (98-107); Estimated GFR 69; Glucose 96 mg/dL (70-105); Potassium 4.1 mmol/L (3.5-5.1); Sodium 138 mmol/L (136-145)
[2022-05-07] MEDS: hydrALAZINE 25 MG TAB PO SCH ×3 (09:40→22:07)
[2022-05-07] MEDS: Digoxin 0.125 MG TAB PO SCH (09:40)
[2022-05-07] MEDS: Aspirin 81 mg Enteric Coated Tablet PO SCH (09:40)
[2022-05-07] MEDS: Empagliflozin 10 MG TAB PO SCH (09:40)
[2022-05-07] MEDS: Folic Acid 1 MG TAB PO SCH (09:40)
[2022-05-07] MEDS: Spironolactone 25 MG TAB PO SCH (09:41)
[2022-05-07] MEDS: Heparin 5,000 UNITS/ML VIAL SC SCH ×3 (09:41→22:11)
[2022-05-07] MEDS: Isosorbide Dinitrate 5 MG TAB PO SCH ×2 (09:41→22:09)
[2022-05-07] MEDS: Thiamine 100 MG TAB PO SCH (09:41)
[2022-05-07] MEDS: Multivit, Therapeutic 1 TAB PO SCH (09:41)
[2022-05-07 11:11] VITALS: BMI 12.2
[2022-05-07] MEDS: Sodium Bicarbonate Tab 325 MG TAB PO SCH ×3 (11:17→22:07)
[2022-05-07] MEDS: Melatonin 3 MG TAB PO SCH (22:10)
[2022-05-07] MEDS: Loratadine 10 MG TAB PO SCH (22:10)
[2022-05-07] MEDS: Nicotine 14 MG PATCH TOP SCH (22:11)
[2022-05-08 05:22] LABS: Anion Gap 15 mmol/L (10-20); BUN (Urea Nitrogen) 13 mg/dL (7.0-18.7); Calc. Creatinine Clearance 39 mL/min (70-130); Calcium 8.9 mg/dL (7.8-10.44); Carbon Dioxide 21 mmol/L (22-29); Chloride 108 mmol/L (98-107); Estimated GFR 66; Glucose 106 mg/dL (70-105); Potassium 3.7 mmol/L (3.5-5.1); Sodium 140 mmol/L (136-145)
[2022-05-08] MEDS ORDERED: Isosorbide Dinitrate 5 MG TAB PO SCH (08:34)
[2022-05-08] MEDS: Sodium Bicarbonate Tab 325 MG TAB PO SCH ×3 (09:10→21:09)
[2022-05-08] MEDS: Aspirin 81 mg Enteric Coated Tablet PO SCH (09:11)
[2022-05-08] MEDS: Digoxin 0.125 MG TAB PO SCH (09:11)
[2022-05-08] MEDS: Multivit, Therapeutic 1 TAB PO SCH (09:11)
[2022-05-08] MEDS: Folic Acid 1 MG TAB PO SCH (09:11)
[2022-05-08] MEDS: Isosorbide Dinitrate 20 MG TAB PO SCH ×2 (09:11→21:09)
[2022-05-08] MEDS: Spironolactone 25 MG TAB PO SCH (09:11)
[2022-05-08] MEDS: Empagliflozin 10 MG TAB PO SCH (09:11)
[2022-05-08] MEDS: hydrALAZINE 25 MG TAB PO SCH ×3 (09:11→21:09)
[2022-05-08] MEDS: Heparin 5,000 UNITS/ML VIAL SC SCH ×3 (09:12→21:10)
[2022-05-08] MEDS: Thiamine 100 MG TAB PO SCH (09:17)
[2022-05-08] MEDS: Nicotine 14 MG PATCH TOP SCH (21:08)
[2022-05-08] MEDS: Loratadine 10 MG TAB PO SCH (21:09)
[2022-05-08] MEDS: Melatonin 3 MG TAB PO SCH (21:09)
[2022-05-09 05:28] LABS: #Basophils 0.1 thou/uL (0.0-0.2); #Eosinphils 0.2 thou/uL (0.0-0.7); #Monocytes 0.8 thou/uL (0.11-0.59); #Neutrophils 5.8 thou/uL (1.40-6.50); %Basophils 0.7 % (0.0-1.0); %Eosinophils 2.5 % (0.0-10.0); %Lymphocytes 30.5 % (21.0-51.0); %Neutrophils 58.4 % (42.0-75.0); Hemoglobin 7.7 g/dL (12.0-16.0); Mean Corpuscular HGB CONC 31.8 g/dL (32.0-36.0); Mean Corpuscular Hemoglobin 30.6 pg (27.0-31.0); Mean Platelet Volume 8.5 fL (7.4-10.4); Platelet Count 376 10x3/uL (130-400); White Blood Cell (WBC) Count 9.9 10x3/uL (4.8-10.8)
[2022-05-09 05:51] LABS: Anion Gap 13 mmol/L (10-20); BUN (Urea Nitrogen) 15 mg/dL (7.0-18.7); Calc. Creatinine Clearance 40 mL/min (70-130); Calcium 8.8 mg/dL (7.8-10.44); Carbon Dioxide 23 mmol/L (22-29); Chloride 107 mmol/L (98-107); Estimated GFR 63; Glucose 107 mg/dL (70-105); Potassium 3.7 mmol/L (3.5-5.1); Sodium 139 mmol/L (136-145)
[2022-05-09] MEDS: Digoxin 0.125 MG TAB PO SCH (09:16)
[2022-05-09] MEDS: Aspirin 81 mg Enteric Coated Tablet PO SCH (09:16)
[2022-05-09] MEDS: Spironolactone 25 MG TAB PO SCH (09:17)
[2022-05-09] MEDS: Thiamine 100 MG TAB PO SCH (09:17)
[2022-05-09] MEDS: Multivit, Therapeutic 1 TAB PO SCH (09:18)
[2022-05-09] MEDS: hydrALAZINE 25 MG TAB PO SCH ×2 (09:18→16:01)
[2022-05-09] MEDS: Isosorbide Dinitrate 20 MG TAB PO SCH (09:19)
[2022-05-09] MEDS: Folic Acid 1 MG TAB PO SCH (09:19)
[2022-05-09] MEDS: Empagliflozin 10 MG TAB PO SCH (09:19)
[2022-05-09] MEDS: Heparin 5,000 UNITS/ML VIAL SC SCH ×2 (09:20→16:01)
[2022-05-09] MEDS: Sodium Bicarbonate Tab 325 MG TAB PO SCH ×2 (09:39→16:00)
[2022-05-09 20:03] VITALS: BP 128/74; TEMP 99.3
[2022-05-09] MEDS ORDERED: Atorvastatin Calcium 40 MG TAB PO SCH (21:00)
== END 2022-05-09 18:50 | disposition home or self-care (01) | DRG 280 ==
LOC: ERS 01:53 → ERHOLD 05:34 → IMCU/EMU 15:10 → 2NO 05-02 00:17
PROVIDERS: ADMIT Internal Medicine; ATTEND Internal Medicine
PROC: 3E033XZ Introduction of Vasopressor into Peripheral Vein, Percutaneous Approach (ICD-10-PCS; principal; 2022-04-26)
PROC: 30233N1 Transfusion of Nonautologous Red Blood Cells into Peripheral Vein, Percutaneous Approach (ICD-10-PCS; 2022-04-28)
DX: I42.6 Alcoholic cardiomyopathy (principal); E11.10 Type 2 diabetes mellitus with ketoacidosis without coma; I21.4 Non-ST elevation (NSTEMI) myocardial infarction; E43 Unspecified severe protein-calorie malnutrition; I50.23 Acute on chronic systolic (congestive) heart failure; R57.0 Cardiogenic shock; N17.9 Acute kidney failure, unspecified; E87.1 Hypo-osmolality and hyponatremia; Z68.1 Body mass index [BMI] 19.9 or less, adult; Z20.822 Contact with and (suspected) exposure to COVID-19; F17.210 Nicotine dependence, cigarettes, uncomplicated; E87.6 Hypokalemia; E55.9 Vitamin D deficiency, unspecified; F10.20 Alcohol dependence, uncomplicated; E11.22 Type 2 diabetes mellitus with diabetic chronic kidney disease; J44.9 Chronic obstructive pulmonary disease, unspecified; D63.1 Anemia in chronic kidney disease; I50.82 Biventricular heart failure; E86.9 Volume depletion, unspecified; E86.0 Dehydration; I08.1 Rheumatic disorders of both mitral and tricuspid valves; N18.2 Chronic kidney disease, stage 2 (mild); G47.00 Insomnia, unspecified; Z71.41 Alcohol abuse counseling and surveillance of alcoholic
CPT/HCPCS: 36415; 36416; 36430; 71045; 76770; 80048; 80053; 80061; 80069; 80306; 81003; 82010; 82040; 82274; 82306; 82553; 82728; 82805; 83036; 83540; 83550; 83605; 83690; 83735; 83880; 84100; 84132; 84443; 84484; 85014; 85018; 85025; 85049; 85610; 85730; 86780; 86850; 86900; 86901; 87811; 93005; 93010; 93306; 93976; 96361; 96365; 96366; 96368; C9113; J1160; J1250; J1644; J1815; J1940; J2260; J2916; J3411; J3475; J3480; J7050; J7070; J7999; P9016; Q5105; U0002

== ENCOUNTER 2022-05-11 17:18 | Emergency (ER) | payer BC, OTHER | END 2022-05-11 18:59 | disposition home or self-care (01) | LOC: ERS 17:18 | DX: M17.12 Unilateral primary osteoarthritis, left knee (principal); F17.210 Nicotine dependence, cigarettes, uncomplicated ==

== ENCOUNTER 2024-01-19 16:35 | Emergency (ER) | payer BC ==
[~2024-01-19 16:35] MED LIST: Iopamidol-370 76% 500 ML MDV (1 ML CHARGE) ONE
[2024-01-19] MEDS ORDERED: Ketorolac Tromethamine 30 MG (1 mL) VIAL ONE (17:28)
[2024-01-19 17:37] LABS: #Basophils 0.04 10x3/uL (0.0-0.2); %Basophils 0.6 % (0.0-1.0); %Eosinophils 3.6 % (0.0-10.0); %Lymphocytes 22.9 % (21.0-51.0); %Monocytes 8.2 % (0.0-10.0); %Neutrophils 63.9 % (42.0-75.0); Hematocrit 32.3 % (36.0-47.0); Mean Corpuscular HGB CONC 34.1 g/dL (32.0-36.0); Mean Corpuscular Hemoglobin 31.6 pg (27.0-31.0); Mean Corpuscular Volume 92.8 fL (78.0-98.0); Mean Platelet Volume 9.3 fL (7.4-10.4); Platelet Count 284 10x3/uL (130-400); Red Blood Cell (RBC) Count 3.48 mill/uL (4.20-5.40)
[2024-01-19 17:48] LABS: BHCG - Serum Negative (NEGATIVE); Pregs Control Background? CLEAR/WHITE (CLR/WHITE); Pregs Control Bar Appear? YES (CONTROL BAR)
[2024-01-19 17:53] LABS: ALT (SGPT) 21 U/L (8-55); AST (SGOT) 15 U/L (5-34); Albumin 3.4 g/dL (3.5-5.0); Alkaline Phosphatase 60 U/L (40-110); Anion Gap 15 mmol/L (10-20); BUN (Urea Nitrogen) 14 mg/dL (7.0-18.7); Bilirubin, Total 0.3 mg/dL (0.2-1.2); Calc. Creatinine Clearance 0 mL/min (70-130); Calcium 9.2 mg/dL (7.8-10.44); Carbon Dioxide 19 mmol/L (22-29); Chloride 105 mmol/L (98-107); Estimated GFR 83; Globulin 3.5 g/dL (2.4-3.5); Glucose 126 mg/dL (70-105); Lipase 17 U/L (8-78); Potassium 4.2 mmol/L (3.5-5.1); Protein, Total 6.9 g/dL (6.0-8.3); Sodium 135 mmol/L (136-145)
[2024-01-19 17:59] LABS: Troponin I Less than 0.010 ng/mL (< 0.028)
[2024-01-19 18:39] LABS: Acetaminophen Less than 10 mcg/mL (Less than 10); Alcohol Less than 10.0 mg/dL (Less than 10); Salicylate Less than 8.0 mg/dL (Less than 8.0)
[2024-01-19 18:51] LABS: Bacteria/HPF None Seen HPF (None Seen); Bilirubin Negative (Negative); Blood, Urine Negative (Negative); CAUTI Indications for Culture Dysuria,urgency,freq; Clarity Turbid (Clear); Glucose, Urine (Dipstick) 30 mg/dL (Negative); Ketone, Urine Trace mg/dL (Negative); Leukocyte 250 Leu/uL (Negative); Nitrite Negative (Negative); Protein, Urine (Dipstick) 30 mg/dL (Neg-Trace); RBC/HPF 0-3 HPF (0-3); Specific Gravity, Urine 1.016 (1.002-1.036); WBC/HPF 21-50 HPF (0-3); pH, Urine 5.5 (5.0-9.0)
[2024-01-19 18:59] LABS: Urine Culture Reflex Yes Yes
== END 2024-01-19 20:37 | disposition home or self-care (01) ==
LOC: ERS 16:35
DX: N39.0 Urinary tract infection, site not specified (principal); K86.89 Other specified diseases of pancreas; R10.32 Left lower quadrant pain; F17.210 Nicotine dependence, cigarettes, uncomplicated
CPT/HCPCS: 36415; 36416; 74177; 80053; 80307; 81001; 83690; 84484; 84703; 85025; 87086; 93005; 96361; 96374; J1885

== ENCOUNTER 2024-02-03 14:36 | Emergency (ER) | payer BC ==
[2024-02-03] MEDS ORDERED: Ondansetron PF 4 MG/2 ML Vial ONE (15:43)
[2024-02-03] MEDS ORDERED: Morphine 4 MG/ML VIAL ONE (15:43)
[2024-02-03 15:54] LABS: #Basophils 0.08 10x3/uL (0.0-0.2); %Eosinophils 3.5 % (0.0-10.0); %Lymphocytes 24.2 % (21.0-51.0); %Monocytes 6.1 % (0.0-10.0); %Neutrophils 64.8 % (42.0-75.0); Hematocrit 32.6 % (36.0-47.0); Hemoglobin 10.7 g/dL (12.0-16.0); Mean Corpuscular HGB CONC 32.8 g/dL (32.0-36.0); Mean Corpuscular Hemoglobin 30.5 pg (27.0-31.0); Mean Corpuscular Volume 92.9 fL (78.0-98.0); Mean Platelet Volume 9.5 fL (7.4-10.4); Platelet Count 292 10x3/uL (130-400); RBC Distribution Width 14.6 % (11.5-14.5); Red Blood Cell (RBC) Count 3.51 mill/uL (4.20-5.40)
[2024-02-03 16:01] LABS: ALT (SGPT) 23 U/L (8-55); AST (SGOT) 19 U/L (5-34); Albumin 3.3 g/dL (3.5-5.0); Alkaline Phosphatase 66 U/L (40-110); Anion Gap 15 mmol/L (10-20); BUN (Urea Nitrogen) 8 mg/dL (7.0-18.7); Bilirubin, Total 0.3 mg/dL (0.2-1.2); Calc. Creatinine Clearance 0 mL/min (70-130); Calcium 8.5 mg/dL (7.8-10.44); Carbon Dioxide 19 mmol/L (22-29); Chloride 108 mmol/L (98-107); Estimated GFR 100; Globulin 3.5 g/dL (2.4-3.5); Glucose 88 mg/dL (70-105); Lipase 9 U/L (8-78); Magnesium 1.5 mg/dL (1.6-2.6); Potassium 3.4 mmol/L (3.5-5.1); Protein, Total 6.8 g/dL (6.0-8.3); Sodium 139 mmol/L (136-145)
[2024-02-03 16:06] LABS: Troponin I 0.015 ng/mL (< 0.028)
[2024-02-03 17:38] LABS: Pregnancy Test - Urine (BHCG) Negative (Negative); Pregu Control Background? CLEAR/WHITE (CLR/WHITE); Pregu Control Bar Appear? YES (CONTROL BAR); Specific Gravity 1.012 (1.002-1.036)
[2024-02-03 17:39] LABS: Bacteria/HPF None Seen HPF (None Seen); Bilirubin Negative (Negative); Blood, Urine Negative (Negative); CAUTI Indications for Culture Pelvic or flank pain; Clarity Clear (Clear); Glucose, Urine (Dipstick) Normal (Negative); Ketone, Urine Negative (Negative); Leukocyte 250 Leu/uL (Negative); Nitrite Negative (Negative); Protein, Urine (Dipstick) Negative (Neg-Trace); RBC/HPF 0-3 HPF (0-3); Specific Gravity, Urine 1.012 (1.002-1.036); Squamous Epithelial 0-3 HPF (0-3); Urobilinogen Normal mg/dL (Less than 2); pH, Urine 5.5 (5.0-9.0)
[2024-02-03 17:41] LABS: Urine Culture Reflex No No
[2024-02-03] MEDS ORDERED: Potassium Chloride 20 MEQ TAB ONE (18:41)
[2024-02-03] MEDS ORDERED: Magnesium 2 GM/50 ML BAG (IN WATER) ONE (18:41)
[2024-02-03 18:57] LABS: Lactic Acid 2.57 mmol/L (0.5-2.2)
[2024-02-03] MEDS ORDERED: Ondansetron ODT 4 MG TAB ONE (22:45)
[2024-02-03] MEDS ORDERED: traMADol HCl 50 MG TAB ONE (22:46)
== END 2024-02-03 23:00 | disposition home or self-care (01) ==
LOC: ERS 14:36
DX: K86.1 Other chronic pancreatitis (principal); F17.210 Nicotine dependence, cigarettes, uncomplicated; I25.2 Old myocardial infarction
CPT/HCPCS: 36415; 74174; 76856; 80053; 81001; 81025; 83605; 83690; 83735; 84484; 85025; 93005; 94760; 96361; 96365; 96366; 96375; J2272; J2405; J3475; Q0162